=== PATIENT | female | born 1975 | race Caucasian/White ===

== ENCOUNTER 2017-07-10 15:24 | Emergency (ER) | payer MEDICARE, OTHER ==
[2017-07-10] MEDS ORDERED: IPRATROPIUM/ALBUTEROL SULFATE 3 ML AMPUL.NEB NEB ONE ×2 (15:27→15:44)
[2017-07-10] MEDS ORDERED: methylPREDNISolone SOD SUCC 125 MG/2 ML VIAL IVP ONE (15:37)
[2017-07-10] MEDS ORDERED: 0.9 % SODIUM CHLORIDE 1,000 ML IV ONE (15:43)
[2017-07-10 15:47] LABS: MEAN CORPUSCULAR HEMOGLOBIN 34.8 pg (28.0-34.0); MEAN CORPUSCULAR VOLUME 99.3 fl (80.0-100.0)
[2017-07-10 15:56] LABS: MONOCYTES % 2 % (0-11); SEGMENTED NEUTROPHILS % 80 % (39-79)
[2017-07-10 15:57] LABS: eGFR (African) > 60; eGFR (Non-African) > 60
[2017-07-10] MEDS ORDERED: ONDANSETRON HCL/PF 4 MG/ 2ML VIAL ONE (16:04)
[2017-07-10] MEDS ORDERED: ONDANSETRON HCL/PF 4 MG/ 2ML VIAL IVP ONE (16:07)
--- NOTE | 2017-07-10 17:01 | Diagnostic Imaging Report ---
DEANDRE AVELAR [facility] [address] [facility] [address] 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 I see no hilar or mediastinal mass. There is no pleural effusion or lesion of the bony thorax. A calcified granuloma is present in the left lower lobe. Impression: No acute infiltrate. Lung field hyperinflation Electronically signed on Jul 10, 2017 4:22:02 PM CLIENT APPLICATION SUPPORT SPECIALIST by: Jose MCELROY
[2017-07-10 18:43] LABS: APPEARANCE,URINE CLEAR (CLEAR); COLOR,URINE YELLOW (YELLOW); OCCULT BLOOD,URINE 2+ (NEGATIVE); UROBILINOGEN URINE 0.2 Eu (0.2-1.0)
--- NOTE | 2017-07-10 18:54 | ED Physician Documentation ---
General Adult - HISTORIAN Historian: patient - HPI Stated Complaint: SOA Chief Complaint: General Adult Additional Information: cough congestion occ prod whitish mucous sob chest fever to 100.4 ache all over chills sweats pos flu vacc no food for 4 days xs water Onset: days ago (4) Timing: still present, worse Severity: moderate Further Comments: yes (pt squit cigarettes 1 month ago prev 3ppd smoker-lives with parents who both smoke) - ROS CONST: fever, sweating, recent illness, weakness EYES/ENT: none CVS/RESP: shortness of breath, cough GI/: other (lower bilat flank discomfort wears pad leaks urine since hysterectomy) MS/SKIN/LYMPH: none NEURO/PSYCH: dizziness. denies: headache, fainting - PAST HX Past History: asthma, COPD, other (fibromyalgia) Surgeries/Procedures: cholecystectomy, hysterectomy, other (foot x 7) Allergies/Adverse Reactions: Allergies Allergy/AdvReac Type Severity Reaction Status Date / Time No Known Drug Allergies Allergy Verified 07/10/17 15:41 Home Medications: Ambulatory Orders Medication Instructions Recorded Amitriptyline HCl 10 mg PO HS 07/10/17 Ciprofloxacin HCl [Cipro] 500 mg PO BID #12 tablet 07/10/17 Gabapentin Enacarbil [Horizant] 600 mg PO QID 07/10/17 Montelukast Sodium [Singulair] 10 mg PO DAILY 07/10/17 Tiotropium [place] [Spiriva] 1 puff INH DAILY 07/10/17 - SOCIAL HX Smoking History: non-smoker, quit less than 1 year Alcohol Use: none Drug Use: none - FAMILY HX Family History: No - VITAL SIGNS Vital Signs: Vital Signs Temp Pulse Resp BP Pulse Ox 98.7 F 127 H 38 H 113/80 92 07/10/17 15:45 07/10/17 15:45 07/10/17 15:45 07/10/17 15:45 07/10/17 15:45 - REVIEWED ASSESSMENTS Nursing Assessment Reviewed: Yes Vitals Reviewed: Yes ED Results Lab/Radiology - Lab Results Lab Results: Lab Results 07/10/17 07/10/17 07/10/17 18:04 15:40 15:40 WBC 8.00 K/ul K/ul (4.00-12.00) RBC 4.19 M/ul M/ul (3.90-5.20) Hgb 14.6 g/dL g/dL (12.0-16.0) Hct 41.6 % % (34.5-46.5) MCV 99.3 fl fl (80.0-100.0) MCH 34.8 pg H pg (28.0-34.0) MCHC 35.0 g/dL g/dL (30.0-36.0) RDW 14.1 % % (11.3-14.3) Plt Count 139 K/mm3 K/mm3 (130-400) Seg Neutrophils % 80 % H % (39-79) Band Neutrophils % 9 % % (0-12) Lymphocytes % 9 % L % (16-50) Monocytes % 2 % % (0-11) Plt Morphology Comment Normal (NORMAL) RBC Morph Comment Normal (NORMAL) Sodium 133 mmol/L L mmol/L (136-145) Potassium 4.2 mmol/L mmol/L (3.5-5.1) Chloride 103 mmol/L mmol/L (98-107) Carbon Dioxide 15 mmol/L L mmol/L (22-30) BUN 13 mg/dL mg/dL (7-17) Creatinine 0.80 mg/dL mg/dL (0.52-1.04) Estimated Creat Clear 222 Est GFR ( Amer) > 60 (60 - ) Est GFR (Non-Af Amer) > 60 (60 - ) Glucose 97 mg/dL mg/dL (74-106) Calcium 8.9 mg/dL mg/dL (8.4-10.2) Total Bilirubin 0.8 mg/dL mg/dL (0.2-1.3) AST 67 U/L H U/L (15-46) ALT 147 U/L H U/L (13-69) Alkaline Phosphatase 126 U/L U/L (38-126) Total Protein 7.8 g/dL g/dL (6.3-8.2) Albumin 4.1 g/dL g/dL (3.5-5.0) Urine Color Yellow (YELLOW) Urine Appearance Clear (CLEAR) Urine pH 6.0 (5.0 - 8.0) Ur Specific Cool 1.025 (1.010-1.030) Urine Protein 3+ mg/dL H mg/dL (NEGATIVE) Urine Ketones 2+ mg/dL H mg/dL (NEGATIVE) Urine Occult Blood 2+ H (NEGATIVE) Urine Nitrite Positive H (NEGATIVE) Urine Bilirubin 1+ H (NEGATIVE) Urine Urobilinogen 0.2 Eu Eu (0.2-1.0) Ur Leukocyte Esterase Trace H (NEGATIVE) Urine Glucose Negative mg/dL mg/dL (NEGATIVE) - Orders Orders: ED Orders Category Date Time Status Place IV Lock 1T Care 07/10/17 15:43 Active CHEST 2VIEW [RAD] Stat Exams 07/10/17 Completed CBC/PLATELET/DIFF Routine Lab 07/10/17 15:40 Completed CMP Routine Lab 07/10/17 15:40 Completed UA MACRO DIP ONLY Routine Lab 07/10/17 18:04 Completed URINE CULTURE Routine Lab 07/10/17 18:04 Received 0.9 % Sodium Chloride [Normal Saline] 1,000 ml Med 07/10/17 15:43 Discontinued IV Q1H Ipratropium/Albuterol Sulfate [Duoneb] Med 07/10/17 15:27 Discontinued 3 ml NEB .STK-MED ONE Ipratropium/Albuterol Sulfate [Duoneb] Med 07/10/17 15:44 Discontinued 3 ml NEB NOW ONE Ondansetron HCl/Pf [Zofran 4 mg/2 ml] Med 07/10/17 16:04 Discontinued 4 mg .ROUTE .STK-MED ONE Ondansetron HCl/Pf [Zofran 4 mg/2 ml] Med 07/10/17 16:07 Discontinued 4 mg IVP NOW ONE methylPREDNISolone SOD SUCC [Solu-MEDROL] Med 07/10/17 15:37 Discontinued 125 mg IVP NOW ONE EKG WITH COMPARISON Stat Ther 07/10/17 Completed General Adult Physical Exam - PHYSICAL EXAM GENERAL APPEARANCE: mild distress EENT: eye inspection normal NECK: normal inspection. No: lymphadenopathy, carotid bruit RESPIRATORY: wheezes, rales, other (dec air movement) CVS: reg rate & rhythm ABDOMEN: soft, tenderness (slight genl) BACK: normal inspection SKIN: warm/dry, normal color. No: cyanosis, diaphoresis, jaundice, mottled EXTREMITIES: non-tender, normal range of motion NEURO: oriented X3, motor nml, sensation nml, mood/affect nml Discharge Clincal Impression: influenza-copd uti Prescriptions: Ciprofloxacin HCl [Cipro] 500 mg PO BID #12 tablet Referrals: Sarah Hylotn MD [Primary Care Provider] - 2 Days Comments: pt much better w/tx lungs clear pt appears and feel much better has uti-will tx Condition: Good Disposition: 01 HOME, SELF-CARE Decision to Admit: NO Decision Time: 19:00
[2017-07-10 19:23] VITALS: BP 126/71
== END 2017-07-10 19:06 | disposition home or self-care (01) ==
LOC: ED 15:24
DX: J11.1 Influenza due to unidentified influenza virus with other respiratory manifestations (principal); Z87.891 Personal history of nicotine dependence; J44.9 Chronic obstructive pulmonary disease, unspecified; N39.0 Urinary tract infection, site not specified
CPT/HCPCS: 71046; 80053; 81002; 85025; 87086; 87186; 93005; J2405; J2930; J7030; 96365; 96375; 99283; S1016